=== PATIENT | male | born 1980 | race African-American/Black ===

== ENCOUNTER 2022-03-06 20:36 | Emergency (ER) | payer SELFPAY ==
[~2022-03-06] VITALS: Ht 177.8 cm; Wt 79.4 kg
--- NOTE | 2022-03-06 20:50 | NUR ---
Tad gleason in ED - 03/06/22 at 2119 by JANET TOLERATING R/A WELL WITH NO SOB. CONNECTED PT TO POX AND MONITOR. SAFETY MEASURES IN PLACE.
--- NOTE | 2022-03-06 20:50 | NUR ---
BIBRA 89 C/O RIGHT FOOT PAIN, BOTTOM HEEL FOR THE PAST FEW DAYS. PT A/OX3. TOLERATING R/A WELL WITH NO SOB. CONNECTED PT TO POX AND MONITOR. SAFETY MEASURES IN PLACE.
--- NOTE | 2022-03-06 22:13 | NUR ---
PT REFUSED TO HAVE BLOOD DRAWN AND XRAY.
[2022-03-06 22:14] VITALS: BP 154/94
--- NOTE | 2022-03-06 22:18 | NUR ---
Patient discharged to home in stable condition. Written and verbal after care instructions given. Patient verbalizes understanding of instruction. Pt ambulatory with a steady gait
== END 2022-03-06 22:20 | disposition home or self-care (01) ==
LOC: ER 20:46
DX: M79.671 Pain in right foot (principal); Z60.2 Problems related to living alone

== ENCOUNTER 2023-08-01 01:37 | Emergency (ER) | payer OTHER ==
[~2023-08-01] VITALS: Ht 185.4 cm; Wt 90.7 kg
[2023-08-01 01:59] VITALS: BP 135/61; TEMP 98
[2023-08-01] MEDS ORDERED: TERB250T53 PO (02:34)
[2023-08-01 02:38] VITALS: O2SAT 97
== END 2023-08-01 02:41 | disposition home or self-care (01) ==
LOC: ER 01:40
DX: B35.1 Tinea unguium (principal); Z79.899 Other long term (current) drug therapy; Z59.00 Homelessness unspecified

== ENCOUNTER 2023-08-05 03:05 | Emergency (ER) | payer OTHER ==
[~2023-08-05] VITALS: Ht 185.4 cm; Wt 90.7 kg
[~2023-08-05 03:05] MED LIST: TERB250T53 PO
[2023-08-05 04:03] LABS: BASOPHILS # (AUTO) 0.1 K/uL (0.0-0.2); BASOPHILS % (AUTO) 1.2 % (0.0-2.0); EOSINOPHILS # (AUTO) 0.3 K/uL (0.0-0.7); EOSINOPHILS % (AUTO) 4.3 % (0.0-6.0); HEMATOCRIT 49 % (39-51); HEMOGLOBIN 16.2 g/dL (13.5-17.5); LYMPHOCYTES # (AUTO) 2.2 K/uL (0.8-4.8); LYMPHOCYTES % (AUTO) 33.8 % (20.0-44.0); MEAN CORPUSCULAR HEMOGLOBIN 33 PG (26.0-33.0); MEAN CORPUSCULAR HGB CONC 33 g/dl (31.0-36.0); MEAN CORPUSCULAR VOLUME 98 fL (80-96); MONOCYTES # (AUTO) 0.8 K/uL (0.1-1.30); MONOCYTES % (AUTO) 11.6 % (2.0-12.0); NEUTROPHILS # (AUTO) 3.2 K/uL (1.8-8.9); NEUTROPHILS % (AUTO) 49.1 % (43.0-81.0); PLATELET COUNT (AUTO) 256 K/uL (150-450); RED BLOOD CELL COUNT(AUTO) 4.96 MIL/uL (4.5-6.0); RED CELL DISTRIBUTION WIDTH 14.2 % (11.5-15.0); WHITE BLOOD COUNT (AUTO) 6.6 K/uL (4.3-11.0)
[2023-08-05 04:24] LABS: CALCIUM, SERUM 8.9 mg/dL (8.5-10.1); CARBON DIOXIDE 24 mmol/L (21-32); CHLORIDE 102 mmol/L (98-107); CREATININE 1.1 mg/dL (0.6-1.3); GLUCOSE 67 mg/dL (74-106); POTASSIUM 3.6 mmol/L (3.5-5.1); SODIUM SERUM 137 mmol/L (136-145); UREA NITROGEN, BLOOD 10 mg/dL (7-18)
[2023-08-05 04:41] LABS: ALANINE AMINOTRANSFERASE 24 U/L (12-78); ALKALINE PHOSPHATASE 115 U/L (46-116); ASPARTATE AMINOTRANSFERASE 18 U/L (15-37); BILIRUBIN,TOTAL 0.3 mg/dL (0.2-1.0)
[2023-08-05 04:42] LABS: ACETAMINOPHEN <10 ug/ml (10-30); ALCOHOL, BLOOD < 3 mg/dL (0-10); SALICYLATE 2.1 mg/dL (2.8-20.0); TOTAL PROTEIN, SERUM 8.7 g/dL (6.4-8.2)
[2023-08-05 05:45] LABS: APPEARANCE,URINE CLEAR (CLEAR); BILIRUBIN,URINE NEGATIVE (NEGATIVE); BLOOD, URINE NEGATIVE Ery/uL (NEGATIVE); COLOR,URINE YELLOW (YELLOW); KETONES,URINE NEGATIVE (NEGATIVE); LEUKOCYTE ESTERASE ,URINE NEGATIVE (NEGATIVE); NITRITE, URINE NEGATIVE (NEGATIVE); PH,URINE 5.5 (5.0-8.0); PROTEIN,URINE NEGATIVE (NEGATIVE); UGLUCOSE NEGATIVE (NEGATIVE); UROBILINOGEN,URINE 0.2 EU/dL (0.2)
[2023-08-05 05:58] LABS: BARBITURATE, URINE NEGATIVE (NEGATIVE); BENZODIAZEPINE, URINE NEGATIVE (NEGATIVE); CANNABINOID, URINE NEGATIVE (NEGATIVE); COCCAINE, URINE NEGATIVE (NEGATIVE); OPIATE, URINE NEGATIVE (NEGATIVE); PHENCYCLIDINE SCREEN,URINE NEGATIVE (NEGATIVE)
[2023-08-05 06:05] LABS: AMPHETAMINE, URINE POSITIVE (NEGATIVE)
[2023-08-05 08:50] VITALS: BP 136/78; TEMP 98.5; O2SAT 100
== END 2023-08-05 09:41 ==
LOC: ER 03:13
DX: F41.9 Anxiety disorder, unspecified (principal); F22 Delusional disorders; Z79.899 Other long term (current) drug therapy; Z20.822 Contact with and (suspected) exposure to COVID-19; Z59.00 Homelessness unspecified
CPT/HCPCS: 99285; 85025; 80048; 80076; 81003; 36415; 84484; 87426; 80143; 80320; 80307; C9803; G0480

== ENCOUNTER 2024-01-29 19:42 | Emergency (ER) | payer MEDICAID, OTHER ==
[~2024-01-29] VITALS: Ht 193 cm; Wt 97.5 kg
[2024-01-29 20:29] VITALS: BP 162/96; TEMP 97.9; O2SAT 98
[2024-01-29] MEDS ORDERED: TERB250T53 PO (20:36)
[2024-01-29] MEDS ORDERED: CLOT15CR27 TP (20:37)
== END 2024-01-29 20:45 | disposition home or self-care (01) ==
LOC: ER 19:45
DX: B35.1 Tinea unguium (principal); Z59.00 Homelessness unspecified

== ENCOUNTER 2024-04-01 06:54 | Emergency (ER) | payer MEDICAID ==
[~2024-04-01] VITALS: Ht 172.7 cm; Wt 81.6 kg
[~2024-04-01 06:54] MED LIST changes: +CLOT15CR27 TP; -TERB250T53 PO
[2024-04-01 07:05] VITALS: TEMP 98.8
[2024-04-01] MEDS ORDERED: AMLO10TA4 PO (07:57)
[2024-04-01] MEDS ORDERED: HYDR-4182 TP (07:57)
[2024-04-01 08:05] VITALS: BP 165/100; O2SAT 97
== END 2024-04-01 08:05 | disposition home or self-care (01) ==
LOC: ER 06:58
DX: L24.9 Irritant contact dermatitis, unspecified cause (principal); Z59.00 Homelessness unspecified